=== PATIENT | female | born 1970 | race Two or more races ===

== ENCOUNTER 2023-10-19 10:05 | Emergency (ER) | payer MEDICAID, OTHER ==
[~2023-10-19] VITALS: Ht 157.5 cm; Wt 63.5 kg
[2023-10-19 11:13] LABS: BASOPHILS % (AUTO) 0.6 % (0.0-2.0); EOSINOPHILS # (AUTO) 0.1 K/uL (0.0-0.7); EOSINOPHILS % (AUTO) 1.2 % (0.0-6.0); HEMATOCRIT 42 % (33-45); LYMPHOCYTES # (AUTO) 2.6 K/uL (0.8-4.8); MEAN CORPUSCULAR HEMOGLOBIN 29 PG (26.0-33.0); MEAN CORPUSCULAR HGB CONC 34 g/dl (31.0-36.0); MEAN CORPUSCULAR VOLUME 87 fL (82-100); MONOCYTES # (AUTO) 0.5 K/uL (0.1-1.30); MONOCYTES % (AUTO) 8.4 % (2.0-12.0); NEUTROPHILS # (AUTO) 2.4 K/uL (1.8-8.9); NEUTROPHILS % (AUTO) 43.8 % (43.0-81.0); PLATELET COUNT (AUTO) 252 K/uL (150-450); RED BLOOD CELL COUNT(AUTO) 4.83 MIL/uL (4.0-5.2); RED CELL DISTRIBUTION WIDTH 13.3 % (11.5-15.0); WHITE BLOOD COUNT (AUTO) 5.6 K/uL (4.3-11.0)
[2023-10-19 11:20] LABS: APPEARANCE,URINE SLIGHTLY CLOUDY (CLEAR); BILIRUBIN,URINE NEGATIVE (NEGATIVE); BLOOD, URINE TRACE-INTA Ery/uL (NEGATIVE); COLOR,URINE YELLOW (YELLOW); KETONES,URINE NEGATIVE (NEGATIVE); LEUKOCYTE ESTERASE ,URINE 2+ (NEGATIVE); NITRITE, URINE NEGATIVE (NEGATIVE); PH,URINE 6.5 (5.0-8.0); PROTEIN,URINE NEGATIVE (NEGATIVE); UGLUCOSE NEGATIVE (NEGATIVE); UROBILINOGEN,URINE 0.2 EU/dL (0.2)
[2023-10-19 11:24] LABS: PREGNANCY TEST URINE QUAL NEGATIVE (NEGATIVE)
[2023-10-19 11:32] LABS: RBC,URINE 0-2 /HPF (0-2)
[2023-10-19 11:32] LABS: BILIRUBIN,DIRECT 0.1 mg/dL (0.0-0.2); BILIRUBIN,TOTAL 0.4 mg/dL (0.2-1.0); CALCIUM, SERUM 9.3 mg/dL (8.5-10.1); CREATININE 0.7 mg/dL (0.6-1.3); POTASSIUM 4.2 mmol/L (3.5-5.1); TOTAL PROTEIN, SERUM 7.9 g/dL (6.4-8.2)
[2023-10-19 11:34] LABS: ADD URINE CULTURE YES; BACTERIA,URINE Moderate /HPF (None Seen); SQUAMOUS EPITHELIAL CELL,UR Moderate /HPF (None Seen)
[2023-10-19] MEDS ORDERED: SENN-265 PO (12:01)
[2023-10-19] MEDS ORDERED: DICY10CA37 PO (12:01)
[2023-10-19 12:17] VITALS: BP 116/72; TEMP 98.4; O2SAT 100
== END 2023-10-19 12:17 | disposition home or self-care (01) ==
LOC: ER 10:05
DX: K59.00 Constipation, unspecified (principal); R10.30 Lower abdominal pain, unspecified; R10.2 Pelvic and perineal pain; I10 Essential (primary) hypertension; E11.9 Type 2 diabetes mellitus without complications; Z79.899 Other long term (current) drug therapy
CPT/HCPCS: 36415; 80048-TC; 80076-TC; 81001; 83690-TC; 84703-TC; 85025-TC; 87086-TC

== ENCOUNTER 2024-11-17 18:10 | Emergency (ER) | payer MEDICAID ==
[~2024-11-17] VITALS: Ht 147.3 cm; Wt 63.0 kg
[~2024-11-17 18:10] MED LIST: DICY10CA37 PO; SENN-265 PO
[2024-11-17] MEDS ORDERED: IOHEXOL 300 MG/ML IV ONE (18:12)
[2024-11-17] MEDS ORDERED: KETOROLAC TROMETHAMINE 15 MG/ML VIAL ONE (21:15)
[2024-11-17] MEDS: KETOROLAC TROMETHAMINE 15 MG/ML VIAL IV ONE (21:17)
[2024-11-17 21:20] LABS: APPEARANCE,URINE CLEAR (CLEAR); BILIRUBIN,URINE NEGATIVE (NEGATIVE); BLOOD, URINE 1+ Ery/uL (NEGATIVE); COLOR,URINE YELLOW (YELLOW); KETONES,URINE NEGATIVE (NEGATIVE); LEUKOCYTE ESTERASE ,URINE NEGATIVE (NEGATIVE); NITRITE, URINE NEGATIVE (NEGATIVE); PROTEIN,URINE NEGATIVE (NEGATIVE); UGLUCOSE NEGATIVE (NEGATIVE); UROBILINOGEN,URINE 0.2 EU/dL (0.2)
[2024-11-17 21:32] LABS: ADD URINE CULTURE NO; BACTERIA,URINE Few /HPF (None Seen); SQUAMOUS EPITHELIAL CELL,UR Few /HPF (None Seen); WBC,URINE 0-2 /HPF (0-3)
[2024-11-17 21:32] LABS: BASOPHILS % (AUTO) 0.5 % (0.0-2.0); EOSINOPHILS % (AUTO) 0.1 % (0.0-6.0); HEMATOCRIT 43 % (33-45); HEMOGLOBIN 14.7 g/dL (11.5-14.8); LYMPHOCYTES # (AUTO) 1.5 K/uL (0.8-4.8); LYMPHOCYTES % (AUTO) 31.8 % (20.0-44.0); MEAN CORPUSCULAR HEMOGLOBIN 30 PG (26.0-33.0); MEAN CORPUSCULAR HGB CONC 34 g/dl (31.0-36.0); MEAN CORPUSCULAR VOLUME 88 fL (82-100); MONOCYTES # (AUTO) 1.1 K/uL (0.1-1.30); MONOCYTES % (AUTO) 22.5 % (2.0-12.0); NEUTROPHILS # (AUTO) 2.2 K/uL (1.8-8.9); NEUTROPHILS % (AUTO) 45.1 % (43.0-81.0); PLATELET COUNT (AUTO) 211 K/uL (150-450); RED BLOOD CELL COUNT(AUTO) 4.87 MIL/uL (4.0-5.2); RED CELL DISTRIBUTION WIDTH 13.8 % (11.5-15.0); WHITE BLOOD COUNT (AUTO) 4.9 K/uL (4.3-11.0)
[2024-11-17 21:45] LABS: CALCIUM, SERUM 9.1 mg/dL (8.5-10.1); CREATININE 0.7 mg/dL (0.6-1.3); POTASSIUM 3.6 mmol/L (3.5-5.1)
[2024-11-17] MEDS ORDERED: KETO10TA2 PO (22:04)
[2024-11-17] MEDS ORDERED: IBUP-1490 PO (23:58)
[2024-11-18 00:08] VITALS: BP 128/77; TEMP 99.6; O2SAT 96
[2024-11-18 04:13] LABS: LYMPHOCYTES % (MANUAL) 29 % (16-48); MONOCYTES % (MANUAL) 25 % (0-11.0); NEUTROPHILS % (MANUAL) 46 (42-76); PLATELET ESTIMATE ADEQUATE
== END 2024-11-18 00:07 | disposition home or self-care (01) ==
LOC: ER 18:11
DX: R10.2 Pelvic and perineal pain (principal); M25.551 Pain in right hip; I10 Essential (primary) hypertension; E11.9 Type 2 diabetes mellitus without complications; Z79.899 Other long term (current) drug therapy
CPT/HCPCS: 99285; 74177; 96374; 76856; 73502; 85025; 80048; 87086; 81001; 36415; 85007; Q9967; J1885